=== PATIENT | female | born 1930 | race African-American/Black ===

== ENCOUNTER → 2016-11-21 | Outpatient (CLI) | payer OTHER ==
[~2016-11-21] VITALS: Ht 157.5 cm; Wt 71.2 kg
[~2016-11-21] MED LIST: ACIPHEX 20 MG T20 MG PO; ASPERCREME76.5 GM TP; ASPIRIN325 PO; B-100 COMPLEX1 EAC1 PO; CARAFATE 1 GM TA1 G1 PO; CINNAMON500 MG PO; CLARITIN10 M2 PO; CORTISPORIN OTI10 M2 OTIC; GABAPENTIN 100100 MG PO; LEVOTHYROXIN0.075 MG PO; LIPITOR10 MG PO; LOSARTAN-HCTZ1 EACH PO; MYRBETRIQ25 MG PO; PRISTIQ50 M1 PO; TRAMADOL 50 MG50 MG PO; TRIAMCINOLONE A80 G2 TOP; TUMS PO; TYLENOL325 MG PO; VERAPAMIL ER180 M1 PO
--- NOTE | ~2016-11-21 | HPC ---
[facility] [address] [place] [address] PAIN MANAGEMENT CONSULTATION Name: GARY PERKINS Room #: REG VIVIANA Lorna.#: [id number] Admission: 11/21/16 Attend Phys: Jose Feldman MD Discharge: Date of : 28 Report #: [id number] THIS REPORT FOR: //name// CC: Huan Feldman DATE OF REGISTRATION: 11/21/2016 CHIEF COMPLAINT: Low back pain with radiation. HISTORY OF PRESENT ILLNESS: The patient is a mary ellen 86-year-old who looks much younger than her stated age. She is here today for what she has been told is an injection to ease pain in her low back radiating down into her back and into her buttocks and thighs. She has had pain on and off for over a year when she fell backwards on concrete. She complains of a 9/10 aching, intermittent pain that radiates through her legs. Pain drawing shows an L5-S1 distribution. She has gotten some relief by pain medication, but the pain continues to be limiting day-to-day. She did see a chiropractor. She had only modest relief. She is able to perform all of her activities of daily living. She still drives a car. She goes to [employer]. She has tried to use some medication; tramadol, but finds that it is not so helpful. She does not like taking at, she takes it "once in a blue hansen." CURRENT MEDICATIONS: From Dr. Villalba's office list are: Cortisporin, loratadine, vitamin B, Cinnamon, Tylenol, calcium, aspirin, Aspercreme, Carafate, infrequent tramadol, Pristiq, verapamil, levothyroxine, AcipHex, gabapentin 100 mg as needed, losartan and Myrbetriq. ALLERGIES: STATIN DRUGS cause muscle aches and pains. PAST MEDICAL HISTORY: Hyperlipidemia, hypertension, thyroid disease, history of small stroke with full recovery, history of gastritis, degenerative osteoarthritis. PAST SURGICAL HISTORY: Hysterectomy 6 years ago and appendectomy. SOCIAL HISTORY: She denies all use of tobacco or alcohol. She attends orthodox regularly in [facility]. She drives her own car. She lives independently and provides for herself with all ADLs. 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 REVIEW OF SYSTEMS: Positive for night sweats, fever, weakness, blurred vision, shortness of breath with dyspnea on exertion and some orthopnea. She has [facility] [address] [place] [address] PAIN MANAGEMENT CONSULTATION Name: GARY PERKINS Room #: REG [facility].#: [id number] Admission: 11/21/16 Attend Phys: Jose Feldman MD Discharge: Date of : 28 Report #: [id number] constipation and has had occasional bleeding in her stool. History of peptic ulcer disease in the past. She has mild incontinence. She reports in the past, she has had depression. She does not appear to be so today. PHYSICAL EXAMINATION: GENERAL: She is a mary ellen 86-year-old who looks much younger than her stated age. VITAL SIGNS: Blood pressure is 143/90, heart rate 89, respirations 20. Her BMI is 28.7. MUSCULOSKELETAL: She is able to move from standing independently to a standing position, ambulates without difficulty. Range of motion of the lumbar spine shows pain with back extension. Positive straight leg raising is noted, reproducing some pain down into the L4-L5, L5-S1 distribution. Sensation is intact. She has no focal weakness. X-rays available include an MRI which shows that there is mild spinal stenosis at L3-L4, there are no areas of high-grade spinal stenosis. She has a grade 1 anterolisthesis at L4-L5 and L5-S1. IMPRESSION: Lumbar radiculopathy, L4-L5 and L5-S1 due to spondylolisthesis. Mild neural foraminal stenosis. RECOMMENDATIONS: Trial of epidural steroid injection under fluoroscopic guidance. This will give us some indication of how she might respond to this treatment over time. What we are looking for here is good meaningful improvement with good long duration with a single injection. DESCRIPTION OF PROCEDURE: After informed consent, the patient was taken to fluoroscopic suite for treatment, placed prone, skin prepped with ChloraPrep. Skin anesthetized over the L4-L5 interspace. A 20-gauge Tuohy epidural needle was advanced first attempt into the epidural space with loss of resistance technique. There was no blood or CSF aspirated. A 1 mL of Omnipaque was injected with excellent spread of dye observed in the epidural space followed by 3 mL of 0.5% lidocaine mixed with 80 mg of triamcinolone. She tolerated the procedure well and was observed for 45 minutes and discharged in good condition. We felt that she was capable of driving herself home and she was able to ambulate without difficulty. Followup visit planned in a month or two. <ELECTRONICALLY SIGNED> By: Jose Feldman MD 12/06/16 1027 [id number] Jose Feldman MD /nt
[2016-11-21 11:30] VITALS: BP 143/90
== END | disposition home or self-care (01) ==
LOC: PAIN 06:47
DX: M54.16 Radiculopathy, lumbar region (principal); M43.16 Spondylolisthesis, lumbar region; M48.06 Spinal stenosis, lumbar region

== ENCOUNTER → 2018-12-28 | Outpatient (CLI) | payer OTHER ==
[~2018-12-28] VITALS: Ht 152.4 cm; Wt 68.0 kg
[2018-12-28 09:33] VITALS: BP 186/96
--- NOTE | 2018-12-28 09:43 | NUR ---
Pain Clinic Assessment: 1. History of Osteoarthritis: B/L HANDS B/L WRISTS History of Rheumatoid Arthritis: NONE 2. Height: 5 ft. 0 in. 152.4 cm. Weight: 150.0 lb. oz. 68.040 kg. Patient's BMI: 29.3 3. Vital Signs: BP: 186/96 Pulse: 92 Resp: 16 Temp: 02 Sat: 99 ECG Mon: 4. Pain Intensity: 9 5. Fall Risk: Dizziness: Y Needs help standing or walking: Y Fallen in the last 3 months: N Fall risk comments: LIVES IN A SENIOR COMMUNITY 6. Patient on Blood Thinner: None 7. History of Hypertension: Y 8. Opioid Therapy greater than 6 weeks: Opiate Contract Signed: 9. Risk Assessment Tool Provided: 10. Functional Assessment Tool: 11. Recreational Drug Use: Never Drug Type: Tobacco Use: Never Smoker Tobacco Type: Amount or Packs/day: How Many Years: Alcohol Use: No Frequency: Quant:
--- NOTE | 2019-01-19 10:39 | HPC ---
[facility] [place] [address] PAIN MANAGEMENT CONSULTATION Name: GARY PERKINS Room #: REG VIVIANA Loran.#: [id number] Admission: 12/28/18 ������������������ Attend Phys: Jose Feldman MD Discharge: ������������������ Date of : 28 Report #: [id number] THIS REPORT FOR: //name// CC: Huan Feldman DATE OF SERVICE: 12/28/2018 CHIEF COMPLAINT: Low back pain radiating down the posterior aspect of both legs. The patient is a mary ellen 88-year-old who I am seeing today for the first time in many years. She had a single epidural injection with outstanding results in 2017. It has been over two years since her last visit. She is here today with similar symptoms. The pain has gradually returned and is now scored as a 9/10. She describes it as she did before radiating down the posterior aspect of her legs and thighs. It is worse with standing and weightbearing. At 88 years of age, she is remarkably healthy and continues to provide for her own care. She cleans, cooks and is able to get about her house fairly effectively except for the recent pain, which has worsened. She describes it as continuous, aching, at times cramping like a muscle spasm. MEDICATIONS: Myrbetriq, losartan, gabapentin, Aciphex, levothyroxine, verapamil, Pristiq, atorvastatin, sucralfate, lidocaine cream, aspirin 1 tablet daily, calcium carbonate, Tylenol 1-2 tablets four times daily, side effects discussed and complications of high dose reviewed, vitamin B, loratadine. ALLERGIES: ADHESIVE TAPE. PAST MEDICAL HISTORY: Remarkable for hysterectomy, hyperlipidemia, hypertension, thyroid disease, history of small stroke with full recovery, gastritis, degenerative osteoarthritis involving many joints including knees and hips. Her knees appeared to be the worst. She walks with a cane. SOCIAL HISTORY: She lives independently. She denies use of tobacco or alcohol. She is active in her [employer] and is wearing a [employer] T-shirt today. She has daughters in [place] and one in [place] and is in contact with them frequently. She travels occasionally to visit. REVIEW OF SYSTEMS: Positive for some dyspnea on exertion, occasional upset stomach with GI problems. She has frequent urination and burning. She complains occasionally of fatigue, weakness, and night sweats and chronic joint pain. PHYSICAL EXAMINATION: She is 5 feet tall, 150 pounds with a BMI of 29.3. She [facility] [address] [place] [address] PAIN MANAGEMENT CONSULTATION Name: GARY PERKINS Room #: REG CLI [facility].#: [id number] Admission: 12/28/18 ������������������ Attend Phys: Jose Feldman MD Discharge: ������������������ Date of : 28 Report #: [id number] is pleasant, alert and oriented with no signs of anxiety, depression or dementia. She is conversant, gives an excellent history. She moves independently from sitting to standing position. It is hard for her to get started mostly because of pain in the knees. She is able to ambulate with a cane. She is possibly a fall risk, but has not recently fallen. CHEST: Clear. CARDIAC: Rhythm is regular. ABDOMEN: Soft. MUSCULOSKELETAL: Reveals a normal alignment of the lumbar spine with excellent flexion and extension without exacerbation of pain in the spine. She has local tenderness across the lumbosacral segment. Bilateral straight leg raising reproduces pain into the hips and down the posterior aspect of the legs. She has mild numbness in a nondermatomal distribution of both feet. No focal weakness is noted. Positive straight leg raising is noted bilaterally. Deep tendon reflexes are 1+ at the knees and absent at the ankles. IMAGING: X-rays show mild spinal stenosis at L3-L4 and neuropathy with grade 1 anterolisthesis at L4-L5 and L5-S1. Previous x-rays reviewed from her injection, which was so successful at L4-L5. IMPRESSION: Lumbar radiculopathy, bilateral secondary to spinal stenosis and anterolisthesis of L4 on L5, L5 on S1. Excellent response previously to epidural injection. RECOMMENDATION: Epidural injection under fluoroscopic guidance. She was taken to fluoroscopic suite, placed prone, skin prepped with ChloraPrep. Skin anesthetized over the L4-L5 interspace. A 20-gauge Tuohy epidural needle advanced in the epidural space in first attempt with loss of resistance. There was no blood or CSF aspirated. 1 mL of Omnipaque injected. Good spread of dye observed in the epidural space followed by 3 mL of 0.5% lidocaine mixed with 80 mg of triamcinolone. She tolerated the procedure well and was observed for 45 minutes and discharged. Followup visit planned in the pain clinic on an as needed basis. We hope that we will get by with a single injection as we did two years ago. ��������������������������������������������� <ELECTRONICALLY SIGNED> ���������������������������������������� By: Jose Feldman MD ��������������������������������������������� 01/19/19 1039 [id number] Jose Feldman MD /nt
== END | disposition home or self-care (01) ==
LOC: PAIN 12-21 07:04
DX: M54.16 Radiculopathy, lumbar region (principal); M48.061 Spinal stenosis, lumbar region without neurogenic claudication; M43.16 Spondylolisthesis, lumbar region; E78.5 Hyperlipidemia, unspecified; I10 Essential (primary) hypertension; E03.9 Hypothyroidism, unspecified; M19.90 Unspecified osteoarthritis, unspecified site; K29.70 Gastritis, unspecified, without bleeding; Z91.040 Latex allergy status; Z79.899 Other long term (current) drug therapy; Z79.82 Long term (current) use of aspirin; Z98.890 Other specified postprocedural states; Z86.73 Personal history of transient ischemic attack (TIA), and cerebral infarction without residual deficits